=== PATIENT | female | born 1990 | race Caucasian/White ===

== ENCOUNTER 2017-12-03 22:13 | Emergency (ER) | payer OTHER ==
[~2017-12-03] VITALS: Ht 177.8 cm; Wt 52.2 kg
[~2017-12-03 22:13] MED LIST: 8 HOUR PAIN RE650 M1; ANTACID MULTI-1 EACH; APRISO0.375 GM PO; CIPRO250 M1 PO; CIPROFLOXACIN500 M1 PO; CIPROFLOXACIN500 M3; FLAGYL500 MG; FLAGYL500 MG PO; HYDROCODON-ACE1 EAC7; HYDROCODONE-AP1 EAC6 PO; IBUPROFEN 200200 M1; NOHOMEMEDICATIONS; PHENAZOPYRIDIN200 M2 PO; PREDNISONE 10 M10 MG PO; TRAMADOL 50 MG50 MG PO; TYLENOL325 MG PO; ZOFRAN ODT4 MG PO; [UNRECOGNIZED DRUG - REMARK]
[2017-12-03 22:46] LABS: URINE BILIRUBIN NEGATIVE (Negative); URINE BLOOD TRACE (Negative); URINE CLARITY CLEAR; URINE COLOR YELLOW; URINE GLUCOSE-RANDOM* NEGATIVE (Negative); URINE KETONES NEGATIVE (Negative); URINE LEUKOCYTES-REFLEX NEGATIVE (Negative); URINE NITRITE-REFLEX NEGATIVE (Negative); URINE PROTEIN (DIPSTICK) NEGATIVE (Negative); URINE SPECIFIC GRAVITY 1.015 (1.005-1.035); URINE UROBILINOGEN 0.2 E.U./dl (0.2-1.0)
[2017-12-03 23:43] LABS: ABSOLUTE NEUTROPHILS 3.4 thou/uL (1.4-8.2); BASOPHILS 0.8 % (0.0-2.0); EOSINOPHILS 1.8 % (0.0-3.0); HEMATOCRIT 37.6 % (37.0-47.0); HEMOGLOBIN 12.8 gm/dL (12.0-15.0); LYMPHOCYTES 33.1 % (24.0-44.0); MCH 31.2 pg (26.0-34.0); MCHC 34.1 g/dL (28.0-37.0); MCV 91.3 fL (80.0-100.0); MONOCYTES 8.3 % (1.0-8.0); PLATELET COUNT 162 thou/uL (150-400); RBC 4.11 mil/uL (4.20-5.00); RDW 13.3 % (10.5-14.5); WBC 6.1 thou/uL (4.0-11.0)
[2017-12-04 00:14] LABS: LARGE PLATELETS RARE
[2017-12-08 13:10] LABS: NEISSERIA GONORRHEA-PCR Negative (Negative)
== END 2017-12-04 02:45 | disposition short-term general hospital (02) ==
LOC: ER 22:13
PROVIDERS: Emergency Medicine
DX: O46.91 Antepartum hemorrhage, unspecified, first trimester (principal); R10.2 Pelvic and perineal pain; F17.210 Nicotine dependence, cigarettes, uncomplicated; K50.90 Crohn's disease, unspecified, without complications; Z86.010 Personal history of colon polyps; Z3A.00 Weeks of gestation of pregnancy not specified